=== PATIENT | male | born 1995 | race Caucasian/White ===

== ENCOUNTER 2020-10-06 21:18 | Emergency (ER) | payer BC ==
[2020-10-06] MEDS ORDERED: Lidocaine 2% 20 ML MDV INFILT ONE (21:19)
[2020-10-06] MEDS ORDERED: Acetaminophen/HYDROcodone 325-7.5 MG Tab PO ONE (21:35)
--- NOTE | 2020-10-06 21:39 | EDM.PDOC ---
ED HPI GENERAL MEDICAL PROBLEM - General Chief Complaint: Laceration Stated Complaint: LACERATION R HAND Time Seen by Provider: 10/06/20 21:40 Source of Information: Reports: Patient History Limitations: Reports: No Limitations - History of Present Illness INITIAL COMMENTS - FREE TEXT/NARRATIVE: 25-year-old gentleman came to the emergency department after sustaining an injury while woodworking. He states that a piece of wood came to a machine he was working on and struck the palm of his hand and he suffered a laceration. He has no other concerns or complaints at this time and has been feeling well prior to this. He has no chest pain, shortness of breath, dizziness. Patient states that his last tetanus shot was approximately 2 years ago. - Related Data Allergies Allergy/AdvReac Type Severity Reaction Status Date / Time No Known Allergies Allergy Verified 09/08/15 19:44 Home Meds: Home Meds NK [No Known Home Meds] 09/08/15 [History] Past Medical History - Past Health History Medical/Surgical History: Denies Medical/Surgical History - Past Surgical History HEENT Surgical History: Reports: Oral Surgery Musculoskeletal Surgical History: Reports: Other (See Below) ED ROS GENERAL - Review of Systems Review Of Systems: See Below Constitutional: Reports: No Symptoms HEENT: Reports: No Symptoms Respiratory: Reports: No Symptoms Cardiovascular: Reports: No Symptoms Endocrine: Reports: No Symptoms GI/Abdominal: Reports: No Symptoms : Reports: No Symptoms Musculoskeletal: Reports: Hand Pain Skin: Reports: No Symptoms Neurological: Reports: No Symptoms Psychiatric: Reports: No Symptoms Hematologic/Lymphatic: Reports: No Symptoms Immunologic: Reports: No Symptoms ED EXAM, SKIN/RASH Exam: See Below Exam Limited By: No Limitations General Appearance: Alert, WD/WN, No Apparent Distress Eye Exam: Bilateral Eye: EOMI Head: Atraumatic, Normocephalic Respiratory/Chest: No Respiratory Distress, Lungs Clear Cardiovascular: Normal Peripheral Pulses, Regular Rate, Rhythm, No Edema Peripheral Pulses: 2+: Radial (L), Radial (R) GI/Abdominal: Normal Bowel Sounds Extremities: Other (Laceration palm of the right hand. Patient has motion including opposition of the thumb to the fifth digit intact with sensation intact and capillary refill intact of the right hand patient is able to move all 5 fingers including flexion and extension, abduction and abduction) Neurological: Alert, Oriented, CN II-XII Intact, Normal Cognition Psychiatric: Normal Affect, Normal Mood Skin: Wound/Incision, Other (Approximately 6 cm L-shaped laceration in the palm the right hand) Location, Skin: Upper Extremity, Right, Palms Associated features: Tenderness, Inflammation Lymphatic: No Adenopathy Course - Vital Signs Text/Narrative:: X-ray of the right hand showed no acute fracture or dislocation. Patient's hand was anesthetized with approximately 8 mL of 2% lidocaine without epinephrine. Patient's wound was thoroughly scrubbed and cleaned under running water for approximately 5 minutes. Approximately 7 sutures using 4.0 ethylene were placed with loose approximation of edges to close the wound. Wound was cleaned, covered with a Tegaderm. Formfitting fiberglass was used to place the patient's hand with the fingers slightly flexed to remove stress from the skin of the palm of his hand. His hand was secured with Davidson bandage. Patient was instructed to try his best not to use that hand and to leave the sutures in place for 2 weeks. Last Recorded V/S: Last Vital Signs Temp 37.1 C 10/06/20 21:30 Pulse 72 10/06/20 21:30 Resp 16 10/06/20 21:30 BP 126/82 10/06/20 21:30 Pulse Ox 98 10/06/20 21:30 - Orders/Labs/Meds Orders: Active Orders 24 hr Category Date Time Status Hand Comp Min 3V Rt [CR] Stat Exams 10/06/20 21:35 Taken Meds: Medications Discontinued Medications Generic Name Dose Route Start Last Admin Trade Name Freq PRN Reason Stop Dose Admin Hydrocodone Bitart/Acetaminophen 1 tab 10/06/20 21:35 10/06/20 22:05 Acetaminophen/Hydrocodone 325-7.5 Mg Tab PO 10/06/20 21:36 1 tab NOW ONE Administration Departure - Departure Time of Disposition: 02:19 Disposition: Home, Self-Care 01 Condition: Good Clinical Impression: Laceration - Discharge Information *PRESCRIPTION DRUG MONITORING PROGRAM REVIEWED*: Not Applicable *COPY OF PRESCRIPTION DRUG MONITORING REPORT IN PATIENT KATIA: Not Applicable Instructions: Laceration Care, Adult, [id number] Forms: ED Department Discharge Sepsis Event Note (ED) - Focused Exam Vital Signs: Vital Signs Temp Pulse Resp BP Pulse Ox 10/06/20 21:30 37.1 C 72 16 126/82 98 - My Orders Last 24 Hours: My Active Orders 10/06/20 21:35 Hand Comp Min 3V Rt [CR] Stat - Assessment/Plan Last 24 Hours: My Active Orders 10/06/20 21:35 Hand Comp Min 3V Rt [CR] Stat
[2020-10-06 22:29] VITALS: BP 126/82; PULSE 72
[2020-10-07] MEDS ORDERED: Bacitracin/Neomycin/Polymyxin B Oint 0.9 GM U/D Packet TOP ONE (02:28)
== END 2020-10-07 02:30 | disposition home or self-care (01) ==
LOC: FB.ED 21:18
DX: S61.411A Laceration without foreign body of right hand, initial encounter (principal); W26.8XXA Contact with other sharp object(s), not elsewhere classified, initial encounter; Y99.0 Civilian activity done for income or pay
CPT/HCPCS: 12002; 73130; 99283; A9270